=== PATIENT | female | born 1945 | race Caucasian/White ===

== ENCOUNTER 2021-09-06 13:19 | Emergency (ER) | payer MEDICARE ==
[~2021-09-06] VITALS: Ht 154.9 cm; Wt 54.5 kg
[~2021-09-06 13:19] MED LIST: ASPIRIN E.C. 8181 MG PO; CENTRUM1 TA1 PO; CITRACAL + D CA1 TAB PO; DITROPAN 5MG TAB5 MG PO; GLUCOPHAGE500 MG/TAB PO; MAGNESIUM250 M1 PO; MASON NATURAL1200 MG PO; PRAVACHOL 40MG40 MG PO; VISION VITAMINS1 TA1 PO; ZESTRIL 20MG TA20 MG PO; [UNRECOGNIZED DRUG - OTHER] PO
[2021-09-06 13:24] VITALS: TEMP 96.2
[2021-09-06 14:28] LABS: HEMATOCRIT 38.2 % (37.0-47.0); MEAN CELL VOLUME 81 fl (80.0-100.0); MEAN CORPUSCULAR HEMOGLOBIN 26 pg (27-31); MEAN CORPUSCULAR HGB CONC 31 g/dl (33.0-37.0); MEAN PLATELET VOLUME 8.8 fl (7.4-10.4); PLATELET COUNT 447 K/mm3 (130-400); REDCELL DISTRIBUTION WIDTH-CV 18.3 % (11.5-14.5)
[2021-09-06 14:50] LABS: ALBUMIN 1.8 gm/dL (3.4-4.8); BILIRUBIN,TOTAL 0.5 mg/dL (0.2-1.2); CALCIUM 7.2 mg/dL (8.4-10.2); CREATININE, serum 0.74 mg/dL (0.57-1.11); POTASSIUM 3.9 mmol/L (3.5-4.5); TOTAL PROTEIN 5.1 gm/dL (6.2-8.1)
[2021-09-06 14:52] LABS: BAND 9 % (0-10); EOSINOPHIL 2 % (0-4); LYMPHOCYTE 4 % (20.0-51.0); METAMYELOCYTE 1 % (0-0); NEUTROPHILS 84 % (42.0-75.2)
[2021-09-06 14:53] LABS: PLATELET ESTIMATE INCREASED (NORMAL)
[2021-09-06] MEDS ORDERED: K-TAB20 PO (15:39)
[2021-09-06] MEDS ORDERED: ATIVAN 1MG T1 MG/TAB (15:41)
[2021-09-06] MEDS ORDERED: MORPHINE 1515 MG/TAB PO (15:41)
[2021-09-06 16:26] LABS: MUCOUS Present (NOT PRESENT); PH 6 (5-8); SQUAMOUS EPITHELIAL 0-2 /hpf (0-10); URINE APPEARANCE Cloudy (CLEAR/HAZY); URINE BACTERIA None Seen /hpf (NONE SEEN); URINE BILIRUBIN Negative (NEGATIVE); URINE BLOOD Negative (NEGATIVE); URINE COLOR Yellow (YELLOW); URINE GLUCOSE 2+ (NEGATIVE); URINE KETONE Negative (NEGATIVE); URINE LEUKOCYTE ESTERASE Negative (NEGATIVE); URINE NITRATE Negative (NEGATIVE); URINE PROTEIN(semi-quant) 3+ (NEGATIVE); URINE UROBILINOGEN Negative (NEGATIVE)
[2021-09-06 16:37] LABS: COLLECTION METHOD CATHETER
[2021-09-06] MEDS ORDERED: LEVAQUIN 5500 MG/TA1 PO ×2 (16:42→16:56)
[2021-09-06 16:45] VITALS: BP 172/67; PULSE 96
== END 2021-09-06 16:55 | disposition home or self-care (01) ==
LOC: COL.ER 13:19
PROVIDERS: Personal Emergency Response Attendant
DX: C78.00 Secondary malignant neoplasm of unspecified lung (principal); D72.829 Elevated white blood cell count, unspecified; R74.02 Elevation of levels of lactic acid dehydrogenase [LDH]; F17.200 Nicotine dependence, unspecified, uncomplicated; Z92.21 Personal history of antineoplastic chemotherapy
CPT/HCPCS: J0696; J7030